=== PATIENT | female | born 1960 | race Caucasian/White ===

== ENCOUNTER → 2016-08-27 | Outpatient (CLI) | payer BC ==
[2016-08-28 15:37] LABS: ASPARTATE AMINO TRANSFERASE 31 IU/L (8-39); BILIRUBIN,TOTAL 0.9 mg/dL (0.3-1.2); BLOOD UREA NITROGEN 9 mg/dL (7-22); BUN/CREATININE RATIO 12.85 (6-20); CALCIUM 9.8 mg/dL (8.7-10.7); CHLORIDE 101 meq/L (98-112); CREATININE 0.7 mg/dL (0.50-1.20); EST GLOMERULAR FILTRATION > 60 (>60 ml/min/1.73m(2)); GLUCOSE 88 mg/dL (78-110); POTASSIUM 3.4 meq/L (3.8-5.2); SODIUM 139 meq/L (135-145); TOTAL PROTEIN 7.1 g/dL (6.1-8.0)
[2016-08-28 15:38] LABS: BASOPHILS # (AUTO) 0.06 10*3/UL; BASOPHILS % (AUTO) 1.4 % (0-1); EOSINOPHILS % (AUTO) 2.1 % (0-8); IMM GRAN % (AUTO) 0.2 % (0-5); IMM GRAN# (AUTO) 0.01 10*3/UL; LYMPHOCYTES # (AUTO) 1.69 10*3/uL; LYMPHOCYTES % (AUTO) 39.1 % (10-50); MEAN CORPUSCULAR HEMOGLOBIN 31.3 PG (27-31); MEAN CORPUSCULAR HGB CONC 33.3 g/dL (33-37); MEAN PLATELET VOLUME 10.3 FL (7.4-12.2); MONOCYTES # (AUTO) 0.54 10*3/UL (0.3-0.8); MONOCYTES % (AUTO) 12.5 % (5-15); NEUTROPHILS # (AUTO) 1.93 10*3/UL; NEUTROPHILS % (AUTO) 44.7 % (50-80); RDW COEFFICIENT OF VARIATION 12.6 % (11.5-14.5); RED BLOOD COUNT 4.16 10^6/uL (4.20-5.40); WHITE BLOOD COUNT 4.32 10^3/uL (4.8-10.8)
[2016-08-28 15:43] LABS: PLATELET MORPHOLOGY COMMENT NORMAL MORPHOLOGY (NORM)
== END ==
LOC: LAB 13:48
PROVIDERS: ATTEND Physician Assistant Medical
DX: K29.70 Gastritis, unspecified, without bleeding (principal); A08.4 Viral intestinal infection, unspecified
CPT/HCPCS: 80053; 85025